=== PATIENT | male | born 1970 | race Caucasian/White ===

== ENCOUNTER 2017-04-01 01:02 | Emergency (ER) | payer OTHER, MEDICAID ==
[~2017-04-01] VITALS: Ht 180.3 cm; Wt 103.8 kg
[~2017-04-01 01:02] MED LIST: ACCUNEB SO1.25 MG/1 INH; AZITHROMYCIN 2250 MG PO; BENTYL 20 MG TA20 M1 PO; BIOFREEZE118 ML TP; CARVEDILOL12.5 MG; CLARITHROMYCIN500 MG; CRANBERRY PLUS1 EAC1; CYCLOBENZAPRINE5 MG PO; DELTASONE20 MG PO; DOXYCYCLINE 10100 MG PO; DUONEB 2.5-0.5 M3 ML INH; FLEXERIL PO; HYDROCHLOROTHIA25 M1; HYDROCODONE-AP1 EAC6 PO; LEVAQUIN 750 M750 MG PO; MULTIVITAMIN; NAPHCON-A EYE D15 ML; NAPROSYN500 MG; NEXIUM20 M1; NORCO 5-325 TA1 EACH PO; NORVASC5 MG; POTASSIUM20; POTASSIUM20 PO; PREDNISONE50 MG PO; PROAIR HFA8.5 GM IH; PROAIR HFA8.5 GM INH; SYMBICORT160 MCG/4.; TRAMADOL 50 MG50 MG; VITAMINC500; ZANTAC 150MG T150 MG PO; ZPAK PO
[2017-04-01 01:27] LABS: ABSOLUTE BASOPHILS 0.1 thou/uL (0.0-0.2); ABSOLUTE EOSINOPHILS 0.2 thou/uL (0.0-0.7); ABSOLUTE LYMPHOCYTES 5.2 thou/uL (0.8-5.3); ABSOLUTE MONOCYTES 0.6 thou/uL (0.0-1.2); ABSOLUTE NEUTROPHILS 5.6 thou/uL (1.6-8.1); BASOPHILS 0.9 %; HEMATOCRIT 47.4 % (42.0-52.0); HEMOGLOBIN 16.2 gm/dL (14.0-18.0); LYMPHOCYTES 44.7 %; MCH 30.5 pg (26.0-34.0); MCHC 34.2 g/dL (28.0-37.0); MCV 89.1 fL (80.0-100.0); MONOCYTES 4.9 %; MPV 7.6 fl. (7.2-11.1); NUCLEATED RBCS 0 /100WBC; PLATELET COUNT* 239 thou/uL (150-400); POLYS 47.5 %; RBC 5.32 mil/uL (4.50-6.00); RDW-CV 13.3 % (10.5-14.5); WBC 11.7 thou/uL (4.0-11.0)
[2017-04-01 01:56] LABS: ANION GAP 10 mmol/L (7-16); BUN 7 mg/dL (7-18); CALCIUM 8.5 mg/dL (8.5-10.1); CHLORIDE 100 mmol/L (98-107); CO2 30 mmol/L (21-32); GLUCOSE 160 mg/dL (70-99); POTASSIUM 2.4 mmol/L (3.5-5.1); SODIUM 140 mmol/L (136-145)
[2017-04-01 01:57] LABS: MAGNESIUM 2.1 mg/dL (1.8-2.4)
[2017-04-01 01:58] LABS: APTT 28.2 Seconds (25.0-31.3); PROTIME 9.8 Seconds (9.20-11.50)
[2017-04-01] MEDS ORDERED: POTASSIUM20 PO (02:08)
[2017-04-01 02:10] LABS: ALBUMIN 3.7 g/dL (3.4-5.0); ALKALINE PHOSPHATASE 86 U/L (46-116); LIPASE 283 U/L (73-393); SGOT 13 U/L (15-37); SGPT 25 U/L (30-65); TOTAL BILIRUBIN 0.4 mg/dL (<0.1-1.0); TOTAL PROTEIN 7.6 g/dL (6.4-8.2); TROPONIN-I LEVEL <0.06 ng/mL (<0.06)
[2017-04-01 02:21] VITALS: BP 137/78
[2017-04-01 02:53] LABS: CK-MB MASS < 0.5 ng/mL (<0.5-3.6)
[2017-04-01 03:25] LABS: NT-PRO BRAIN NAT PEPTIDE 39 pg/mL (<300)
--- NOTE | 2017-04-01 11:16 | EKG ---
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 : 1970 Requested By: Alfredo Laws Order Number: [id number] MD: Ilan Randall Measurements Intervals [place] Rate: 69 P: 73 CT: 177 QRS: 25 QRSD: 126 T: 63 QT: 421 QTc: 451 Interpretive Statements Sinus rhythm IVCD, consider atypical RBBB Baseline wander in lead(s) V2 Compared to ECG 12/12/2016 03:57:17 no change Electronically Signed On 04-01-2017 11:16:20 RD MECHANICAL ENGINEER by Ilan Randall [email or web address] <ELECTRONICALLY SIGNED> By: Ilan Ranadll MD, [facility] 04/01/17 1116 010 010 Ilan Randall MD, FACC /EPI
== END 2017-04-01 02:22 | disposition home or self-care (01) ==
LOC: M.ERS 01:02
PROVIDERS: Family Medicine
DX: R07.89 Other chest pain (principal); E87.6 Hypokalemia; I11.0 Hypertensive heart disease with heart failure; K21.9 Gastro-esophageal reflux disease without esophagitis; F20.9 Schizophrenia, unspecified; J42 Unspecified chronic bronchitis; F17.210 Nicotine dependence, cigarettes, uncomplicated; Z88.1 Allergy status to other antibiotic agents; Z88.0 Allergy status to penicillin; Z88.6 Allergy status to analgesic agent; Z88.8 Allergy status to other drugs, medicaments and biological substances

== ENCOUNTER 2017-05-28 01:23 | Emergency (ER) | payer OTHER, MEDICAID ==
[~2017-05-28] VITALS: Ht 180.3 cm; Wt 102.1 kg
[2017-05-28 01:56] LABS: ABSOLUTE EOSINOPHILS 0.2 thou/uL (0.0-0.7); ABSOLUTE LYMPHOCYTES 5.4 thou/uL (0.8-5.3); ABSOLUTE MONOCYTES 0.6 thou/uL (0.0-1.2); ABSOLUTE NEUTROPHILS 5.2 thou/uL (1.6-8.1); BASOPHILS 0.3 %; EOSINOPHILS 2.1 %; HEMATOCRIT 46.3 % (42.0-52.0); HEMOGLOBIN 16.1 gm/dL (14.0-18.0); LYMPHOCYTES 47.2 %; MCH 31.2 pg (26.0-34.0); MCHC 34.7 g/dL (28.0-37.0); MCV 89.8 fL (80.0-100.0); MONOCYTES 4.9 %; MPV 7.9 fl. (7.2-11.1); NUCLEATED RBCS 0 /100WBC; PLATELET COUNT* 262 thou/uL (150-400); POLYS 45.5 %; RBC 5.16 mil/uL (4.50-6.00); RDW-CV 13.5 % (10.5-14.5); WBC 11.5 thou/uL (4.0-11.0)
[2017-05-28 01:57] LABS: ANION GAP 10 mmol/L (7-16); BUN 12 mg/dL (7-18); CALCIUM 8.4 mg/dL (8.5-10.1); CHLORIDE 101 mmol/L (98-107); CO2 30 mmol/L (21-32); CREATININE 0.9 mg/dL (0.6-1.3); GLUCOSE 149 mg/dL (70-99); SODIUM 141 mmol/L (136-145)
[2017-05-28 02:01] LABS: INR 0.9; PROTIME 9.2 Seconds (9.20-11.50)
[2017-05-28 02:03] LABS: POTASSIUM 2.7 mmol/L (3.5-5.1)
[2017-05-28 02:04] LABS: ALBUMIN 3.6 g/dL (3.4-5.0); ALKALINE PHOSPHATASE 93 U/L (46-116); SGOT 11 U/L (15-37); SGPT 20 U/L (30-65); TOTAL BILIRUBIN 0.3 mg/dL (<0.1-1.0); TOTAL PROTEIN 7.5 g/dL (6.4-8.2); TROPONIN-I LEVEL <0.06 ng/mL (<0.06)
[2017-05-28 05:04] VITALS: BP 161/89
--- NOTE | 2017-05-28 12:02 | EKG ---
[place] [address] ELECTROCARDIOGRAM REPORT Name: KEERTHI STILES [facility] [id number] Admission: 05/28/17 Attend Phys: Discharge: 05/28/17 Date of : 72 Report #: [id number] THIS REPORT FOR: //name// 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: JOSE ENRIQUE : 1970 Requested By: Radha Zafar Order Number: [id number] MD: Xander Kerns Measurements Intervals [place] Rate: 63 P: 70 ME: 189 QRS: 32 QRSD: 119 T: 67 QT: 400 QTc: 410 Interpretive Statements Sinus rhythm Incomplete right bundle branch block Compared to ECG 04/01/2017 01:07:14 Incomplete right bundle-branch block now present Electronically Signed On 05-28-2017 12:01:49 V GROOVE CUTTER by Xander Kerns [email or web address] <ELECTRONICALLY SIGNED> By: Xander Kerns MD, [facility] 05/28/17 1201 0126 012 Xander Kerns MD, [facility] /EPI
== END 2017-05-28 05:09 | disposition home or self-care (01) ==
LOC: M.ERS 01:23
PROVIDERS: Emergency Medicine
DX: E87.6 Hypokalemia (principal); F20.9 Schizophrenia, unspecified; K21.9 Gastro-esophageal reflux disease without esophagitis; J42 Unspecified chronic bronchitis; I11.0 Hypertensive heart disease with heart failure; I50.9 Heart failure, unspecified; F17.210 Nicotine dependence, cigarettes, uncomplicated; Z88.1 Allergy status to other antibiotic agents; Z88.0 Allergy status to penicillin; Z88.2 Allergy status to sulfonamides; Z88.8 Allergy status to other drugs, medicaments and biological substances

== ENCOUNTER 2017-06-29 01:19 | Emergency (ER) | payer OTHER, MEDICAID ==
[~2017-06-29] VITALS: Ht 175.3 cm; Wt 97.5 kg
[2017-06-29] MEDS ORDERED: ULTRAM 50MG TAB50 MG PO (01:41)
[2017-06-29 02:04] VITALS: BP 169/93
== END 2017-06-29 02:10 | disposition home or self-care (01) ==
LOC: M.ERS 01:19
DX: M79.602 Pain in left arm (principal); H61.23 Impacted cerumen, bilateral; I11.0 Hypertensive heart disease with heart failure; I50.9 Heart failure, unspecified; K21.9 Gastro-esophageal reflux disease without esophagitis; Z88.1 Allergy status to other antibiotic agents; Z88.0 Allergy status to penicillin; Z88.6 Allergy status to analgesic agent

== ENCOUNTER 2017-08-16 04:01 | Emergency (ER) | payer OTHER, MEDICAID ==
[~2017-08-16] VITALS: Ht 180.3 cm; Wt 108.9 kg
[~2017-08-16 04:01] MED LIST changes: +ULTRAM 50MG TAB50 MG PO
[2017-08-16] MEDS ORDERED: ALBUTEROL2.5 MG/31 (04:24)
[2017-08-16 04:44] LABS: ABSOLUTE EOSINOPHILS 0.2 thou/uL (0.0-0.7); ABSOLUTE LYMPHOCYTES 5.3 thou/uL (0.8-5.3); ABSOLUTE MONOCYTES 0.6 thou/uL (0.0-1.2); ABSOLUTE NEUTROPHILS 5.3 thou/uL (1.6-8.1); BASOPHILS 0.3 %; EOSINOPHILS 2.1 %; HEMOGLOBIN 15.6 gm/dL (14.0-18.0); LYMPHOCYTES 45.9 %; MCH 31.2 pg (26.0-34.0); MCHC 34.7 g/dL (28.0-37.0); MCV 89.9 fL (80.0-100.0); MONOCYTES 5.7 %; MPV 7.4 fl. (7.2-11.1); NUCLEATED RBCS 0 /100WBC; PLATELET COUNT* 253 thou/uL (150-400); RBC 5.01 mil/uL (4.50-6.00); RDW-CV 13.2 % (10.5-14.5); WBC 11.5 thou/uL (4.0-11.0)
[2017-08-16 04:47] LABS: PROTIME 9.5 Seconds (9.20-11.50)
[2017-08-16 04:57] LABS: ANION GAP 9 mmol/L (7-16); BUN 7 mg/dL (7-18); CALCIUM 8.3 mg/dL (8.5-10.1); CHLORIDE 103 mmol/L (98-107); CO2 28 mmol/L (21-32); CREATININE 0.9 mg/dL (0.6-1.3); GLUCOSE 150 mg/dL (70-99); SODIUM 140 mmol/L (136-145)
[2017-08-16 05:08] LABS: POTASSIUM 2.7 mmol/L (3.5-5.1)
[2017-08-16 05:37] LABS: ALBUMIN 3.6 g/dL (3.4-5.0); ALKALINE PHOSPHATASE 79 U/L (46-116); NT-PRO BRAIN NAT PEPTIDE 14 pg/mL (<300); SGOT 7 U/L (15-37); SGPT 19 U/L (30-65); TOTAL BILIRUBIN 0.2 mg/dL (<0.1-1.0); TOTAL PROTEIN 7.4 g/dL (6.4-8.2); TROPONIN-I LEVEL <0.06 ng/mL (<0.06)
[2017-08-16 07:24] VITALS: BP 159/81
--- NOTE | 2017-08-16 14:50 | EKG ---
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 : 1970 Requested By: Radha Zafar Order Number: [id number] MD: Tian Jackson Measurements Intervals [place] Rate: 70 P: 68 [place]: 167 QRS: 36 QRSD: 109 T: 68 QT: 400 QTc: 432 Interpretive Statements Sinus rhythm RSR' in V1 or V2, right VCD or RVH Compared to ECG 05/28/2017 01:26:50 Right ventricular hypertrophy now present RSR' in V1 or V2 now present Incomplete right bundle-branch block no longer present Electronically Signed On 08-16-2017 14:50:23 CDT by Tian Jackson [email or web address] <ELECTRONICALLY SIGNED> By: Tian Jackson MD, FACC 08/16/17 1450 0406 0406 Tian Jackson MD, [facility] /EPI
== END 2017-08-16 07:24 | disposition home or self-care (01) ==
LOC: M.ERS 04:01
PROVIDERS: Emergency Medicine
DX: R07.9 Chest pain, unspecified (principal); E87.6 Hypokalemia; F20.9 Schizophrenia, unspecified; K21.9 Gastro-esophageal reflux disease without esophagitis; I50.9 Heart failure, unspecified; I11.0 Hypertensive heart disease with heart failure; J44.9 Chronic obstructive pulmonary disease, unspecified; F17.210 Nicotine dependence, cigarettes, uncomplicated; Z88.1 Allergy status to other antibiotic agents; Z88.8 Allergy status to other drugs, medicaments and biological substances; Z88.2 Allergy status to sulfonamides; Z88.6 Allergy status to analgesic agent

== ENCOUNTER 2017-12-29 03:45 | Emergency (ER) | payer OTHER, MEDICAID ==
[~2017-12-29] VITALS: Ht 180.3 cm; Wt 104.3 kg
[~2017-12-29 03:45] MED LIST changes: +ALBUTEROL2.5 MG/31
[2017-12-29 04:06] LABS: MCH 30.6 pg (26.0-34.0); MCHC 34.8 g/dL (28.0-37.0); MCV 87.7 fL (80.0-100.0); MPV 7.2 fl. (7.2-11.1); NUCLEATED RBCS 0 /100WBC; PLATELET COUNT* 271 thou/uL (150-400); RBC 5.24 mil/uL (4.50-6.00); RDW-CV 13.3 % (10.5-14.5); WBC 11.9 thou/uL (4.0-11.0)
[2017-12-29] MEDS ORDERED: VITAMIN C500 M2 PO (04:12)
[2017-12-29] MEDS ORDERED: CRANBERRY200 MG PO (04:12)
[2017-12-29] MEDS ORDERED: CENTRUM SILVER1 EAC4 PO (04:13)
[2017-12-29 04:27] LABS: ANION GAP 7 mmol/L (7-16); BUN 6 mg/dL (7-18); CALCIUM 8.7 mg/dL (8.5-10.1); CHLORIDE 100 mmol/L (98-107); CO2 32 mmol/L (21-32); CREATININE 0.8 mg/dL (0.6-1.3); GLUCOSE 165 mg/dL (70-99); SODIUM 139 mmol/L (136-145)
[2017-12-29 04:29] LABS: POTASSIUM 2.5 mmol/L (3.5-5.1)
[2017-12-29 04:32] LABS: INR 0.9; PROTIME 9.4 Seconds (9.20-11.50)
[2017-12-29 04:38] LABS: ALBUMIN 3.7 g/dL (3.4-5.0); ALKALINE PHOSPHATASE 90 U/L (46-116); LIPASE 247 U/L (73-393); NT-PRO BRAIN NAT PEPTIDE 14 pg/mL (<300); SGOT 9 U/L (15-37); SGPT 19 U/L (30-65); TOTAL BILIRUBIN 0.3 mg/dL (<0.1-1.0); TOTAL PROTEIN 7.9 g/dL (6.4-8.2); TROPONIN-I LEVEL <0.06 ng/mL (<0.06)
[2017-12-29 05:52] LABS: ABSOLUTE LYMPHOCYTES 5.8 thou/uL (0.8-5.3); ABSOLUTE MONOCYTES 0.8 thou/uL (0.0-1.2); ABSOLUTE NEUTROPHILS 5.2 thou/uL (1.6-8.1); ANISOCYTOSIS 1+; PLATELET ESTIMATE ADEQUATE; POIKILOCYTOSIS 1+
[2017-12-29 08:48] VITALS: BP 138/84
--- NOTE | 2017-12-29 16:35 | EKG ---
[place] [address] ELECTROCARDIOGRAM REPORT Name: KEERTHI STILES Room: [facility] Teetee#: [id number] Admission: 12/29/17 Attend Phys: Discharge: 12/29/17 Date of : 72 Report #: [id number] THIS REPORT FOR: //name// [facility] ED Test Date: 2017-12-29 Test Time: 03:50:28 Pat Name: KEERTHI STILES Department: Room: Gender: Electronic Specialist: KRISTY : 1970 Requested By: Radha Zafar Order Number: [id number] MD: Kali Lambert Measurements Intervals [place] Rate: 69 P: 60 [place]: 174 QRS: 17 QRSD: 117 T: 61 QT: 411 QTc: 441 Interpretive Statements Sinus rhythm Incomplete right bundle branch block Compared to ECG 08/16/2017 04:06:03 Incomplete right bundle-branch block now present Right ventricular hypertrophy no longer present Electronically Signed On 12-29-2017 16:35:10 CDT by Kali Lambert [email or web address] <ELECTRONICALLY SIGNED> By: Kali Lambert MD, [facility] 12/29/17 1635 0350 0350 Kali Lambert MD, FAC /EPI
== END 2017-12-29 08:52 | disposition home or self-care (01) ==
LOC: M.ERS 03:45
PROVIDERS: Emergency Medicine
DX: E87.6 Hypokalemia (principal); I11.0 Hypertensive heart disease with heart failure; I50.9 Heart failure, unspecified; K21.9 Gastro-esophageal reflux disease without esophagitis; J42 Unspecified chronic bronchitis; F20.9 Schizophrenia, unspecified; Z88.0 Allergy status to penicillin; Z88.1 Allergy status to other antibiotic agents; Z88.6 Allergy status to analgesic agent; Z88.8 Allergy status to other drugs, medicaments and biological substances; F17.210 Nicotine dependence, cigarettes, uncomplicated

== ENCOUNTER 2018-09-13 01:12 | Emergency (ER) | payer OTHER, MEDICAID ==
[~2018-09-13] VITALS: Ht 180.3 cm; Wt 103.0 kg
[~2018-09-13 01:12] MED LIST changes: +CENTRUM SILVER1 EAC4 PO; +CRANBERRY200 MG PO; +VITAMIN C500 M2 PO
[2018-09-13] MEDS ORDERED: KEFLEX500 M1 PO (01:32)
[2018-09-13 01:38] VITALS: BP 157/72
== END 2018-09-13 01:38 | disposition home or self-care (01) ==
LOC: M.ERS 01:12
DX: L03.116 Cellulitis of left lower limb (principal); F17.210 Nicotine dependence, cigarettes, uncomplicated; F20.9 Schizophrenia, unspecified; K21.9 Gastro-esophageal reflux disease without esophagitis; I11.0 Hypertensive heart disease with heart failure; I50.9 Heart failure, unspecified; J44.9 Chronic obstructive pulmonary disease, unspecified; Z88.1 Allergy status to other antibiotic agents; Z88.8 Allergy status to other drugs, medicaments and biological substances; Z88.0 Allergy status to penicillin; Z88.2 Allergy status to sulfonamides; Z88.6 Allergy status to analgesic agent

== ENCOUNTER 2018-11-22 13:58 | Emergency (ER) | payer OTHER, MEDICAID ==
[~2018-11-22] VITALS: Ht 180.3 cm; Wt 104.3 kg
[~2018-11-22 13:58] MED LIST changes: +CVS POLY BACITR28 G1 TOP; +KEFLEX500 M1 PO; +MUPIROCIN15 GM TOP; +TRAMADOL 50 MG50 MG PO
[2018-11-22 14:08] VITALS: BP 151/90
[2018-11-22] MEDS ORDERED: LIDOCAINE VISC100 ML SWISH&SPIT (14:20)
[2018-11-22] MEDS ORDERED: KEFLEX500 M1 PO (14:20)
[2018-11-22] MEDS ORDERED: ACETAMINOPHEN-1 EAC1 PO (14:20)
== END 2018-11-22 14:31 | disposition home or self-care (01) ==
LOC: M.ERS 13:58
DX: K04.7 Periapical abscess without sinus (principal); F20.9 Schizophrenia, unspecified; I11.0 Hypertensive heart disease with heart failure; I50.9 Heart failure, unspecified; J44.9 Chronic obstructive pulmonary disease, unspecified; K21.9 Gastro-esophageal reflux disease without esophagitis; F17.210 Nicotine dependence, cigarettes, uncomplicated; Z98.890 Other specified postprocedural states; Z88.1 Allergy status to other antibiotic agents; Z88.2 Allergy status to sulfonamides; Z88.6 Allergy status to analgesic agent; Z88.8 Allergy status to other drugs, medicaments and biological substances; Z88.0 Allergy status to penicillin

== ENCOUNTER 2018-12-05 23:43 | Emergency (ER) | payer OTHER, MEDICAID ==
[~2018-12-05] VITALS: Ht 180.3 cm; Wt 102.6 kg
[~2018-12-05 23:43] MED LIST changes: +ACETAMINOPHEN-1 EAC1 PO; +LIDOCAINE VISC100 ML SWISH&SPIT
[2018-12-06] MEDS ORDERED: KEFLEX500 M1 PO (00:16)
== END 2018-12-06 | disposition home or self-care (01) ==
LOC: M.ERS 23:43
DX: S80.262A Insect bite (nonvenomous), left knee, initial encounter (principal); F17.210 Nicotine dependence, cigarettes, uncomplicated; F20.9 Schizophrenia, unspecified; K21.9 Gastro-esophageal reflux disease without esophagitis; I11.0 Hypertensive heart disease with heart failure; I50.9 Heart failure, unspecified; J44.9 Chronic obstructive pulmonary disease, unspecified; Z88.1 Allergy status to other antibiotic agents; Z88.8 Allergy status to other drugs, medicaments and biological substances; Z88.0 Allergy status to penicillin; Z88.2 Allergy status to sulfonamides; Z88.6 Allergy status to analgesic agent; W57.XXXA Bitten or stung by nonvenomous insect and other nonvenomous arthropods, initial encounter; Y92.89 Other specified places as the place of occurrence of the external cause; Y93.89 Activity, other specified; Y99.8 Other external cause status

== ENCOUNTER 2018-12-18 02:06 | Emergency (ER) | payer OTHER, MEDICAID ==
[~2018-12-18] VITALS: Ht 180.3 cm; Wt 102.1 kg
[2018-12-18] MEDS ORDERED: HYDROCHLOROTHIA25 M2 PO (02:14)
[2018-12-18] MEDS ORDERED: VITAMINC500 PO (02:14)
[2018-12-18] MEDS ORDERED: PROZAC10 MG PO (02:15)
[2018-12-18] MEDS ORDERED: KEFLEX500 M1 PO (02:34)
[2018-12-18] MEDS ORDERED: ULTRAM 50MG TAB50 MG PO (02:34)
[2018-12-18 02:42] VITALS: BP 123/66
== END 2018-12-18 02:42 | disposition home or self-care (01) ==
LOC: M.ERS 02:06
DX: H66.93 Otitis media, unspecified, bilateral (principal); I11.0 Hypertensive heart disease with heart failure; I50.9 Heart failure, unspecified; F20.9 Schizophrenia, unspecified; K21.9 Gastro-esophageal reflux disease without esophagitis; J44.9 Chronic obstructive pulmonary disease, unspecified; F17.210 Nicotine dependence, cigarettes, uncomplicated; Z98.890 Other specified postprocedural states; Z88.1 Allergy status to other antibiotic agents; Z88.6 Allergy status to analgesic agent; Z88.0 Allergy status to penicillin; Z88.2 Allergy status to sulfonamides; Z88.8 Allergy status to other drugs, medicaments and biological substances

== ENCOUNTER 2019-01-06 21:20 | Emergency (ER) | payer OTHER, MEDICAID ==
[~2019-01-06] VITALS: Ht 180.3 cm; Wt 108.9 kg
[~2019-01-06 21:20] MED LIST changes: +HYDROCHLOROTHIA25 M2 PO; +PROZAC10 MG PO; +VITAMINC500 PO
[2019-01-06 21:25] VITALS: BP 209/95
[2019-01-06] MEDS ORDERED: SYMBICORT160 MCG/4. INH (21:30)
[2019-01-06] MEDS ORDERED: PREDNISONE 20 M20 M1 PO (21:36)
== END 2019-01-06 21:58 | disposition home or self-care (01) ==
LOC: M.ERS 21:20
DX: J44.1 Chronic obstructive pulmonary disease with (acute) exacerbation (principal); I11.0 Hypertensive heart disease with heart failure; I50.9 Heart failure, unspecified; K21.9 Gastro-esophageal reflux disease without esophagitis; F20.9 Schizophrenia, unspecified; F17.210 Nicotine dependence, cigarettes, uncomplicated; Z88.6 Allergy status to analgesic agent; Z88.1 Allergy status to other antibiotic agents; Z88.2 Allergy status to sulfonamides; Z88.0 Allergy status to penicillin; Z88.8 Allergy status to other drugs, medicaments and biological substances

== ENCOUNTER 2019-01-25 02:44 | Emergency (ER) | payer OTHER, MEDICAID ==
[~2019-01-25] VITALS: Ht 180.3 cm; Wt 99.8 kg
[~2019-01-25 02:44] MED LIST changes: +PREDNISONE 20 M20 M1 PO; +SYMBICORT160 MCG/4. INH
[2019-01-25 03:00] VITALS: BP 168/105
== END 2019-01-25 03:00 | disposition home or self-care (01) ==
LOC: M.ERS 02:44
DX: S61.301A Unspecified open wound of left index finger with damage to nail, initial encounter (principal); I10 Essential (primary) hypertension; F20.9 Schizophrenia, unspecified; K21.9 Gastro-esophageal reflux disease without esophagitis; I50.9 Heart failure, unspecified; J44.9 Chronic obstructive pulmonary disease, unspecified; F17.210 Nicotine dependence, cigarettes, uncomplicated; Z88.1 Allergy status to other antibiotic agents; Z88.6 Allergy status to analgesic agent; Z88.0 Allergy status to penicillin; Z88.2 Allergy status to sulfonamides; W26.8XXA Contact with other sharp object(s), not elsewhere classified, initial encounter; Y93.89 Activity, other specified; Y92.89 Other specified places as the place of occurrence of the external cause; Y99.8 Other external cause status

== ENCOUNTER 2019-02-06 23:29 | Emergency (ER) | payer OTHER, MEDICAID ==
[~2019-02-06] VITALS: Ht 180.3 cm; Wt 95.3 kg
[2019-02-06 23:39] VITALS: BP 136/81
[2019-02-06] MEDS ORDERED: PROZAC 20 MG20 MG PO (23:48)
[2019-02-07] MEDS ORDERED: CILOXAN5 ML INTRAOCULR (00:14)
[2019-02-07] MEDS ORDERED: NASONEX17 GM NASAL (00:14)
== END 2019-02-07 00:22 | disposition home or self-care (01) ==
LOC: M.ERS 23:29
DX: J06.9 Acute upper respiratory infection, unspecified (principal); H10.9 Unspecified conjunctivitis; I11.0 Hypertensive heart disease with heart failure; I50.9 Heart failure, unspecified; F20.9 Schizophrenia, unspecified; K21.9 Gastro-esophageal reflux disease without esophagitis; J44.9 Chronic obstructive pulmonary disease, unspecified; F17.210 Nicotine dependence, cigarettes, uncomplicated; Z88.1 Allergy status to other antibiotic agents; Z88.8 Allergy status to other drugs, medicaments and biological substances; Z88.0 Allergy status to penicillin; Z88.2 Allergy status to sulfonamides; Z88.6 Allergy status to analgesic agent

== ENCOUNTER 2019-02-16 01:02 | Emergency (ER) | payer OTHER, MEDICAID ==
[~2019-02-16] VITALS: Ht 180.3 cm; Wt 95.3 kg
[~2019-02-16 01:02] MED LIST changes: +CILOXAN5 ML INTRAOCULR; +NASONEX17 GM NASAL; +PROZAC 20 MG20 MG PO
[2019-02-16 01:44] LABS: URINE BILIRUBIN NEGATIVE (Negative); URINE BLOOD NEGATIVE (Negative); URINE CLARITY CLEAR; URINE COLOR YELLOW; URINE GLUCOSE-RANDOM NEGATIVE (Negative); URINE KETONES NEGATIVE (Negative); URINE LEUKOCYTES-REFLEX NEGATIVE (Negative); URINE NITRITE-REFLEX NEGATIVE (Negative); URINE PROTEIN NEGATIVE (Negative); URINE SPECIFIC GRAVITY 1.015 (1.005-1.030); URINE UROBILINOGEN 0.2 E.U./dl (0.2-1.0)
[2019-02-16] MEDS ORDERED: HYDROCODON-ACE1 EAC8 PO (01:55)
[2019-02-16 02:00] VITALS: BP 140/72
== END 2019-02-16 02:00 | disposition home or self-care (01) ==
LOC: M.ERS 01:02
PROVIDERS: Emergency Medicine
DX: M62.830 Muscle spasm of back (principal); F20.9 Schizophrenia, unspecified; K21.9 Gastro-esophageal reflux disease without esophagitis; J44.9 Chronic obstructive pulmonary disease, unspecified; I11.0 Hypertensive heart disease with heart failure; I50.9 Heart failure, unspecified; F17.210 Nicotine dependence, cigarettes, uncomplicated; Z88.1 Allergy status to other antibiotic agents; Z88.0 Allergy status to penicillin; Z88.2 Allergy status to sulfonamides; Z88.8 Allergy status to other drugs, medicaments and biological substances; Z88.6 Allergy status to analgesic agent

== ENCOUNTER 2019-04-03 22:11 | Emergency (ER) | payer OTHER, MEDICAID ==
[~2019-04-03] VITALS: Ht 180.3 cm; Wt 108.9 kg
[~2019-04-03 22:11] MED LIST changes: +HYDROCODON-ACE1 EAC8 PO
[2019-04-03] MEDS ORDERED: FAMOTIDINE 20 M20 MG PO (22:24)
[2019-04-03] MEDS ORDERED: NORCO 5-325 TA1 EAC1 PO (23:11)
[2019-04-03 23:24] VITALS: BP 167/64
== END 2019-04-03 23:24 | disposition home or self-care (01) ==
LOC: M.ERS 22:11
DX: R10.9 Unspecified abdominal pain (principal); I10 Essential (primary) hypertension; F20.9 Schizophrenia, unspecified; K21.9 Gastro-esophageal reflux disease without esophagitis; J44.9 Chronic obstructive pulmonary disease, unspecified

== ENCOUNTER 2019-04-21 16:15 | Emergency (ER) | payer OTHER, MEDICAID ==
[~2019-04-21] VITALS: Ht 180.3 cm; Wt 104.3 kg
[~2019-04-21 16:15] MED LIST changes: +FAMOTIDINE 20 M20 MG PO; +NORCO 5-325 TA1 EAC1 PO
[2019-04-21] MEDS ORDERED: TRAZODONE HCL100 MG PO (16:26)
[2019-04-21] MEDS ORDERED: DEPAKOTE 250MG250 M1 PO (16:27)
[2019-04-21 17:01] LABS: ABSOLUTE BASOPHILS 0.1 thou/uL (0.0-0.2); ABSOLUTE EOSINOPHILS 0.1 thou/uL (0.0-0.7); ABSOLUTE LYMPHOCYTES 1.8 thou/uL (0.8-5.3); ABSOLUTE MONOCYTES 0.6 thou/uL (0.0-1.2); ABSOLUTE NEUTROPHILS 8.1 thou/uL (1.6-8.1); BASOPHILS 0.8 %; EOSINOPHILS 0.8 %; HEMATOCRIT 43.4 % (42.0-52.0); HEMOGLOBIN 15.7 gm/dL (14.0-18.0); MCHC 36.1 g/dL (28.0-37.0); MONOCYTES 5.5 %; MPV 7.3 fl. (7.2-11.1); NUCLEATED RBCS 0 /100WBC; PLATELET COUNT* 242 thou/uL (150-400); POLYS 75.9 %; RBC 5.05 mil/uL (4.50-6.00); RDW-CV 13.2 % (10.5-14.5); WBC 10.7 thou/uL (4.0-11.0)
[2019-04-21 17:08] LABS: CALCIUM 7.5 mg/dL (8.5-10.1)
[2019-04-21 17:10] LABS: POTASSIUM 2.6 mmol/L (3.5-5.1)
[2019-04-21 17:13] LABS: ALBUMIN 3.4 g/dL (3.4-5.0); TOTAL BILIRUBIN 0.6 mg/dL (<0.1-1.0); TOTAL PROTEIN 7.4 g/dL (6.4-8.2)
[2019-04-21 17:14] LABS: APTT 29.2 Seconds (25.0-31.3)
[2019-04-21] MEDS ORDERED: FLAGYL500 M1 PO (19:29)
[2019-04-21] MEDS ORDERED: NORCO 5-325 TA1 EAC1 PO (19:29)
[2019-04-21 20:00] VITALS: BP 130/82
--- NOTE | 2019-04-22 14:00 | EKG ---
[place] [address] ELECTROCARDIOGRAM REPORT Name: KEERTHI STILES 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: : 1970 Requested By: Rosa Redding Order Number: [id number] MD: Kali Lambert Measurements Intervals [place] Rate: 78 P: 73 [place]: 162 QRS: -30 QRSD: 111 T: 73 QT: 401 QTc: 457 Interpretive Statements Sinus rhythm Left axis deviation RSR' in V1 or V2, probably normal variant Compared to ECG 12/29/2017 03:50:28 Left-axis deviation now present RSR' in V1 or V2 now present Electronically Signed On 04-22-2019 14:00:13 SPECIAL TRACKWORK BLACKSMITH by Kali Lambert [email or web address] <ELECTRONICALLY SIGNED> By: Kali Lambert MD, FAC 04/22/19 1400 1656 1656 Kali Lambert MD, [facility] /EPI
== END 2019-04-21 20:01 | disposition home or self-care (01) ==
LOC: M.ERS 16:15
PROVIDERS: Nurse Practitioner Family
DX: K80.20 Calculus of gallbladder without cholecystitis without obstruction (principal); D35.02 Benign neoplasm of left adrenal gland; D35.01 Benign neoplasm of right adrenal gland; E87.6 Hypokalemia; K92.1 Melena; R19.7 Diarrhea, unspecified

== ENCOUNTER 2019-04-26 16:55 | Emergency (ER) | payer OTHER, MEDICAID ==
[~2019-04-26] VITALS: Ht 180.3 cm; Wt 104.3 kg
[~2019-04-26 16:55] MED LIST changes: +DEPAKOTE 250MG250 M1 PO; +FLAGYL500 M1 PO; +TRAZODONE HCL100 MG PO
[2019-04-26 18:03] LABS: INFLUENZA A ANTIGEN Negative (Negative); INFLUENZA B ANTIGEN Negative (Negative)
[2019-04-26 18:21] VITALS: BP 155/92
== END 2019-04-26 18:22 | disposition home or self-care (01) ==
LOC: M.ERS 16:55
PROVIDERS: Physician Assistant
DX: J40 Bronchitis, not specified as acute or chronic (principal); B34.9 Viral infection, unspecified; F20.9 Schizophrenia, unspecified; I11.0 Hypertensive heart disease with heart failure; I50.9 Heart failure, unspecified; J44.9 Chronic obstructive pulmonary disease, unspecified; K21.9 Gastro-esophageal reflux disease without esophagitis; F17.210 Nicotine dependence, cigarettes, uncomplicated; Z88.1 Allergy status to other antibiotic agents; Z88.0 Allergy status to penicillin; Z88.2 Allergy status to sulfonamides; Z88.6 Allergy status to analgesic agent

== ENCOUNTER 2019-05-24 20:08 | Emergency (ER) | payer OTHER, MEDICAID ==
[~2019-05-24] VITALS: Ht 175.3 cm; Wt 108.9 kg
[2019-05-24 20:40] LABS: INFLUENZA A ANTIGEN Negative (Negative); INFLUENZA B ANTIGEN Negative (Negative)
[2019-05-24] MEDS ORDERED: PREDNISONE50 MG PO (21:17)
[2019-05-24 21:45] VITALS: BP 142/85
== END 2019-05-24 21:45 | disposition home or self-care (01) ==
LOC: M.ERS 20:08
PROVIDERS: Emergency Medicine
DX: J40 Bronchitis, not specified as acute or chronic (principal); I50.9 Heart failure, unspecified; I11.0 Hypertensive heart disease with heart failure; J44.9 Chronic obstructive pulmonary disease, unspecified; K21.9 Gastro-esophageal reflux disease without esophagitis; F20.9 Schizophrenia, unspecified; Z88.1 Allergy status to other antibiotic agents; Z88.2 Allergy status to sulfonamides; Z88.6 Allergy status to analgesic agent; Z88.8 Allergy status to other drugs, medicaments and biological substances

== ENCOUNTER 2019-05-30 20:00 | Emergency (ER) | payer OTHER, MEDICAID ==
[~2019-05-30] VITALS: Ht 180.3 cm; Wt 111.1 kg
[2019-05-30 20:48] LABS: INFLUENZA A ANTIGEN Negative (Negative); INFLUENZA B ANTIGEN Negative (Negative)
[2019-05-30] MEDS ORDERED: AZITHROMYCIN 2250 MG PO (21:46)
[2019-05-30] MEDS ORDERED: PREDNISONE 10 M10 MG PO (21:46)
[2019-05-30 22:02] VITALS: BP 166/92
== END 2019-05-30 22:03 | disposition home or self-care (01) ==
LOC: M.ERS 20:00
PROVIDERS: Emergency Medicine
DX: J40 Bronchitis, not specified as acute or chronic (principal); I11.0 Hypertensive heart disease with heart failure; I50.9 Heart failure, unspecified; K21.9 Gastro-esophageal reflux disease without esophagitis; J44.9 Chronic obstructive pulmonary disease, unspecified; F17.210 Nicotine dependence, cigarettes, uncomplicated; Z88.1 Allergy status to other antibiotic agents; Z88.0 Allergy status to penicillin; Z88.2 Allergy status to sulfonamides; Z88.6 Allergy status to analgesic agent

== ENCOUNTER 2019-06-04 05:12 | Inpatient (IN) | payer OTHER, MEDICAID ==
[~2019-06-04] VITALS: Ht 180.3 cm; Wt 100.7 kg
[~2019-06-04 05:12] MED LIST changes: -ALBUTEROL2.5 MG/31; +ALBUTEROL2.5 MG/31 INH; -CARVEDILOL12.5 MG; +CARVEDILOL12.5 MG PO; -NORVASC5 MG; +NORVASC5 MG PO; -POTASSIUM20; +PREDNISONE 10 M10 MG PO; -PROZAC 20 MG20 MG PO; +PROZAC20 MG PO
[2019-06-04 05:20] VITALS: BP 166/80
[2019-06-04 05:39] LABS: ABSOLUTE MONOCYTES 0.4 thou/uL (0.0-1.2); ABSOLUTE NEUTROPHILS 8.6 thou/uL (1.6-8.1); BASOPHILS 0.3 %; EOSINOPHILS 0.1 %; HEMATOCRIT 49.2 % (42.0-52.0); HEMOGLOBIN 17.1 gm/dL (14.0-18.0); LYMPHOCYTES 24.8 %; MCH 30.8 pg (26.0-34.0); MCHC 34.7 g/dL (28.0-37.0); MCV 88.6 fL (80.0-100.0); MONOCYTES 3.1 %; MPV 7.5 fl. (7.2-11.1); NUCLEATED RBCS 0 /100WBC; PLATELET COUNT* 354 thou/uL (150-400); POLYS 71.7 %; RBC 5.55 mil/uL (4.50-6.00); RDW-CV 13.8 % (10.5-14.5)
[2019-06-04 05:47] LABS: CALCIUM 9.3 mg/dL (8.5-10.1); POTASSIUM 3.5 mmol/L (3.5-5.1)
[2019-06-04 05:54] LABS: ALBUMIN 3.9 g/dL (3.4-5.0); TOTAL BILIRUBIN 0.4 mg/dL (<0.1-1.0); TOTAL PROTEIN 8.5 g/dL (6.4-8.2)
[2019-06-04 09:25] VITALS: BP 126/78
[2019-06-04 09:32] VITALS: BP 132/85
--- NOTE | 2019-06-04 10:34 | EKG ---
[place] [address] ELECTROCARDIOGRAM REPORT Name: KEERTHI STILES Room: [address] IN [facility]#: [id number] Admission: 06/04/19 Attend Phys: Solitario Hartley, Discharge: Date of : [birth year] Date of Service: 06/04/19 0515 Report #: [id number] THIS REPORT FOR: //name// [facility] ED Test Date: 2019-06-04 Test Time: 05:15:14 Pat Name: KEERTHI STILES Department: Room: [facility] Gender: M Restrooms Or Lounges Maid: NOLA : 1970 Requested By: Sandi Farris Order Number: [id number] MD: Ilan Randall Measurements Intervals [place] Rate: 81 P: 63 [place]: 165 QRS: -24 QRSD: 108 T: 65 QT: 375 QTc: 436 Interpretive Statements Sinus rhythm Borderline left axis deviation RSR' in V1 or V2, probably normal variant Compared to ECG 04/21/2019 16:56:58 No significant changes Electronically Signed On 06-04-2019 10:33:08 CUPOLA LINER by Ilan Randall [email or web address] <ELECTRONICALLY SIGNED> By: Ilan Randall MD, [facility] 06/04/19 1033 0515 0515 Ilan Randall MD, [facility] /EPI
[2019-06-04 11:30] VITALS: BP 162/96
[2019-06-04 16:00] VITALS: BP 148/79
--- NOTE | 2019-06-04 16:40 | 2DMMODE ---
[place] [address] 2 D/M-MODE ECHOCARDIOGRAM Name: KEERTHI STILES Room: [address] IN .R.#: [id number] Admission: 06/04/19 Attend Phys: Solitario Hartley, Discharge: Date of : 72 Date of Service: 06/04/19 1638 Report #: [id number] THIS REPORT FOR: cc: Priti Waller Maggie M. DO Blick, David R. MD [facility] ~ APPROVED REPORT Study performed: 06/04/2019 14:13:51 EXAM: Comprehensive 2D, Doppler, and color-flow Echocardiogram Patient Location: In-Patient Room #: [facility] Status: routine BSA: 2.19 HR: 63 bpm BP: 162/96 mmHg Rhythm: NSR Other Information Study Quality: Adequate Indications Dyspnea 2D Dimensions IVSd: 13.64 (7-11mm) LVOT Diam: 19.86 (18-24mm) LVDd: 45.27 mm PWd: 11.73 (7-11mm) Ascending Ao: 35.11 (22-36mm) LVDs: 25.71 (25-40mm) Aortic Root: 34.22 mm Volumes Left Atrial Volume (Systole) LA ESV Index: 18.30 mL/m2 Aortic Valve AoV Peak Jer.: 1.45 m/s AO Peak Gr.: 8.46 mmHg LVOT Max P.90 mmHg AO Mean Gr.: 4.83 mmHg LVOT Mean P.51 mmHg LVOT Max V: 1.41 m/s AO V2 VTI: 22.25 cm LVOT Mean V: 0.84 m/s JADEN (VTI): 3.85 cm2 LVOT V1 VTI: 27.66 [place] [address] 2 D/M-MODE ECHOCARDIOGRAM Name: KEERTHI STILES Room: [address]#: [id number] Admission: 06/04/19 Attend Phys: Solitario Hartley, Discharge: Date of : 72 Date of Service: 06/04/19 1638 Report #: [id number] Mitral Valve E/A Ratio: 0.77 MV Decel. Time: 241.27 ms MV E Max Jer.: 0.61 m/s MV PHT: 69.97 ms MVA (PHT): 3.14 cm2 TDI E/Lateral E': 4.36 E/Medial E': 6.10 Medial E' Jer.: 0.10 m/s Lateral E' Jer.: 0.14 m/s Pulmonary Valve PV Peak Jer.: 0.93 m/s PV Peak Gr.: 3.45 mmHg Left Ventricle The left ventricle is normal size. There is normal LV segmental wall motion. Mild concentric left ventricular hypertrophy. Left ventricular systolic function is normal. The left ventricular ejection fraction is within the normal range. LVEF is 60-65%. Grade I - abnormal relaxation pattern. Right Ventricle The right ventricle is normal size. The right ventricular systolic function is normal. Atria The left atrium size is normal. The right atrium size is normal. Aortic Valve The aortic valve is normal in structure. No aortic regurgitation is present. There is no aortic valvular stenosis. Mitral Valve The mitral valve is normal in structure. There is no mitral valve regurgitation noted. No evidence of mitral valve stenosis. Tricuspid Valve The tricuspid valve is normal in structure. There is no tricuspid valve regurgitation noted. Pulmonic Valve Pulmonic valve is not well visualized. There is no pulmonic [place] [address] 2 D/M-MODE ECHOCARDIOGRAM Name: KEERTHI STILES Room: [address] IN [facility]#: [id number] Admission: 06/04/19 Attend Phys: Solitario Hartley, Discharge: Date of : 72 Date of Service: 06/04/19 1638 Report #: [id number] Great Vessels The aortic root is normal in size. IVC is not well visualized. Pericardium There is no pericardial effusion. <Conclusion> Mild concentric left ventricular hypertrophy. LVEF is 60-65%. <ELECTRONICALLY SIGNED> By: Ilan Randall MD, FACC 06/04/19 1638 1638 1638 Ilan Randall MD, FAC /INF
[2019-06-04 19:20] VITALS: BP 126/66
--- NOTE | 2019-06-04 20:23 | NUR ---
PT VSS, A&OX4, SNR OF TELE, REPORTS MINOR CHEST ACHING PAIN, ACCUCHECKS, STAND BY ASSIST WITH A CANE, HOURLY ROUNDING PERFORMED, POSSESSIONS AND CALL LIGHT WITHIN REACH
[2019-06-05] VITALS: BP 118/87
[2019-06-05 02:06] LABS: GLYCOHEMOGLOBIN (HGB A1C) 8.9 % (4.8-5.6)
[2019-06-05 04:00] VITALS: BP 102/73
[2019-06-05 04:37] LABS: HEMATOCRIT 44.1 % (42.0-52.0); HEMOGLOBIN 15.5 gm/dL (14.0-18.0); MCHC 35.2 g/dL (28.0-37.0); RBC 5.01 mil/uL (4.50-6.00); RDW-CV 13.8 % (10.5-14.5); WBC 13.9 thou/uL (4.0-11.0)
[2019-06-05 05:26] LABS: ANION GAP 9 mmol/L (7-16); BUN 17 mg/dL (7-18); CALCIUM 8.7 mg/dL (8.5-10.1); CHLORIDE 101 mmol/L (98-107); CHOLESTEROL 193 mg/dL (<200); CO2 30 mmol/L (21-32); CREATININE 0.9 mg/dL (0.6-1.3); GLUCOSE 199 mg/dL (70-99); HDL CHOLESTEROL 32 mg/dL (>40); MAGNESIUM 2.4 mg/dL (1.8-2.4); PHOSPHORUS* 5.5 mg/dL (2.5-4.9); SODIUM 140 mmol/L (136-145); TRIGLYCERIDE 758 mg/dL (<150); VLDL 152 mg/dL (<40)
[2019-06-05 05:31] LABS: POTASSIUM 2.8 mmol/L (3.5-5.1); SERUM ASSESSMENT Gross Lipemia
[2019-06-05 05:32] LABS: LDL CHOLESTEROL ND mg/dL (<100)
[2019-06-05 06:01] LABS: URINE BILIRUBIN NEGATIVE (Negative); URINE BLOOD NEGATIVE (Negative); URINE CLARITY CLEAR; URINE COLOR YELLOW; URINE GLUCOSE-RANDOM NEGATIVE (Negative); URINE KETONES TRACE (Negative); URINE LEUKOCYTES-REFLEX NEGATIVE (Negative); URINE NITRITE-REFLEX NEGATIVE (Negative); URINE PROTEIN NEGATIVE (Negative); URINE SPECIFIC GRAVITY >= 1.030 (1.005-1.030); URINE UROBILINOGEN 0.2 E.U./dl (0.2-1.0)
--- NOTE | 2019-06-05 06:55 | NUR ---
PT ALERT AND ORIENTED. VSS ON 2L. PT WAS SATTING IN 87-89% ON RA. PT SAT UP TO 93% ON 2L. PT DENIES PAIN N/V THIS SHIFT. K+ CRITICAL AT 2.[address] BEAR NOTIFED. WILL FOLLOW UP. PT ON DAILY K+ SUPPLEMENT DUE @ 0900. K+ GIVEN EARLY. UA COLLECTED AND SENT. SEE LAB FOR RESULTS. SIGNIFICANT OTHER AT BEDSIDE. CALL LIGHT WITHIN REACH. HOURLY ROUNDINGS MADE. WILL CONTINUE TO MONITOR.
[2019-06-05 08:00] VITALS: BP 110/68
--- NOTE | 2019-06-05 09:39 | CON ---
[address] [address] CONSULTATION Name: KEERTHI STILES Room: [address] M.R.#: [id number] Admission: 06/04/19 Attend Phys: Solitario Hartley MD Discharge: Date of : 72 Report #: [id number] THIS REPORT FOR: //name// cc: Priti Waller Maggie M. DO ~ THIS REPORT FOR: //name// CC: Solitario Waller DO DATE OF SERVICE: 06/04/2019 CARDIOLOGY CONSULTATION HISTORY OF PRESENT ILLNESS: The patient is a 48-year-old single white male who I was asked to see in the hospital today after complaining of chest pain. The patient states he actually had chest pain, shortness of breath, back in 2015. He underwent a stress echocardiogram here at [facility]. It was performed using dobutamine. Peak heart rate was 146. There were no ECG changes. LV function was normal. There were no wall motion abnormalities. This is felt to be nonischemic. Ejection fraction was normal. Recently, he has had more increased shortness of breath. He had a breathing treatment during the night and began to have a sharp pain in his chest, went into his back. He felt short of breath, but no diaphoresis or nausea. He called EMS and brought here to [facility]. He was admitted for further evaluation and treatment. He did take some Pepto-Bismol, did not seem to help. He denied the pain related to coughing. He has had no bleeding anywhere. Denied trauma to his chest. He does get short of breath when he exerts himself, has had no edema. No palpitations or syncope. PAST MEDICAL HISTORY: Otherwise, he has had previous cyst removal from his back. He has a history of hypertension, diabetes. CURRENT MEDICATIONS: Consists of hydrocodone, amlodipine, carvedilol, albuterol treatments, trazodone, Depakote. ALLERGIES: HE HAS AN ALLERGY TO PENICILLIN AND SULFA DRUGS. FAMILY HISTORY: His mother of heart attack. SOCIAL HISTORY: He is single, lives with girlfriend in [place]. He does not work at this time because of disability. Smokes half pack of cigarettes a day. No alcohol abuse. REVIEW OF SYSTEMS: He has had no history of stroke. He has asthma. No history of peptic ulcer disease, has a gallstone in the past. [place] [address] CONSULTATION Name: GOKEERTHI Bud Room: [address]#: [id number] Admission: 06/04/19 Attend Phys: Solitario Hartley MD Discharge: Date of : 72 Report #: [id number] cancer. He has a history of schizophrenia, sees a psychiatrist. No chronic skin condition. PHYSICAL EXAMINATION: GENERAL: Revealed a middle-aged male who appeared in no distress. VITAL SIGNS: He had a blood pressure of 130/80, pulse is 80. He is afebrile. HEENT: He was anicteric. Conjunctivae are pink. Mucous membranes are moist. NECK: Veins nondistended. No carotid bruits. Neck supple. CHEST: Revealed expiratory wheezes. CARDIOVASCULAR: Regular rate and rhythm, no murmur. ABDOMEN: Soft. EXTREMITIES: Had no edema. Posterior pulse 2+ bilaterally. SKIN: Warm, dry. NEUROLOGIC: Nonfocal. DIAGNOSTIC DATA: His ECG in the Emergency Room today showed a sinus rhythm with incomplete right bundle-branch block, no significant ST or T-wave changes were noted. His chest x-ray last night in the Emergency Room, normal heart size, clear lung lai. LABORATORY DATA: Sodium 135, creatinine 1.0, glucose 533. His liver function studies were normal. Troponins all 0.06. His white blood cell count 12.0, hemoglobin 17.1. IMPRESSION AND RECOMMENDATIONS: 1. Chest pain. Atypical for angina. No ECG changes noted. Recommend no further cardiac evaluation. The patient has negative stress echocardiogram 4 years ago. 2. Chronic obstructive pulmonary disease. 3. Tobacco abuse. 4. Hypertension. The patient is on a beta scotty and calcium scotty. 5. Tobacco abuse. 6. Schizophrenia. <ELECTRONICALLY SIGNED> By: Ilan Randall MD, [facility] 06/05/19 0939 1404 0157Daday Randall MD, FAC /nt
[2019-06-05 11:15] VITALS: BP 130/80
--- NOTE | 2019-06-05 12:00 | NUR ---
MET WITH PT AND S/O KARMEN TO DISCUSS HOME SITUATION/DC PLANNING. PT LIVES WITH K[place] THEY ARE BOTH DISABLED BUT STATE ABLE TO MANAGE WELL, THEY SHARE HOUSEHOLD DUTIES. PT IS INDEPENDENT WITH ADLS. USES CANE. NEW DC. PT TO BE GIVEN INSTRUCTION AND ED MATERIALS/METER FOR DM. GAVE LIST OF DM CLASSES AT [facility] AND ENCOURAGED PT TO CALL. HE ALSO ASKED FOR LIST OF NEW PCP, GIVEN. TO DC LATER TODAY
[2019-06-05] MEDS ORDERED: METFORMIN HCL500 M3 PO (12:16)
[2019-06-05] MEDS ORDERED: AZITHROMYC200 MG/52 PO (12:18)
[2019-06-05 12:23] VITALS: BP 130/80
--- NOTE | 2019-06-05 13:47 | NUR ---
PT VSS, NSR ON TELE, A&OX4, STAND BY ASSIST WITH A CANE, ACCUCHECKS ACHS, HOURLY ROUNDING PERFORMED, POSSESSIONS AND CALL LIGHT WITHIN REACH. REC DISCHARGE ORDERS, REV WITH PATIENT AND SIGNIFICANT OTHER. GAVE NEW TYPE 2 DM BAG WITH INFO AND GLUCOMETER TO PATIENT. GAVE PAPER SCRIPTS AND CARENOTES. TELE MONITOR AND IV REMOVED WITHOUT COMPLICATION. PATIENT TAKEN IN WHEELCHAIR BY NURSING STAFF TO ER ENTRANCE, PICKED UP BY SIGNICICANT OTHER IN FAMILY TRUCK.
== END 2019-06-05 13:00 | disposition home or self-care (01) | DRG 191 ==
LOC: M.ERS 05:12 → M.TBA-ER 06:26 → M.2W 06:26
PROVIDERS: Internal Medicine; Personal Emergency Response Attendant; ADMIT Internal Medicine
DX: J44.1 Chronic obstructive pulmonary disease with (acute) exacerbation (principal); R65.10 Systemic inflammatory response syndrome (SIRS) of non-infectious origin without acute organ dysfunction; I50.32 Chronic diastolic (congestive) heart failure; E11.65 Type 2 diabetes mellitus with hyperglycemia; I11.0 Hypertensive heart disease with heart failure; F20.9 Schizophrenia, unspecified; K21.9 Gastro-esophageal reflux disease without esophagitis; F17.210 Nicotine dependence, cigarettes, uncomplicated; K83.9 Disease of biliary tract, unspecified; E87.6 Hypokalemia; Z79.2 Long term (current) use of antibiotics; Z79.891 Long term (current) use of opiate analgesic; Z79.899 Other long term (current) drug therapy; Z88.1 Allergy status to other antibiotic agents; Z88.0 Allergy status to penicillin; Z88.2 Allergy status to sulfonamides; Z88.8 Allergy status to other drugs, medicaments and biological substances; Z85.118 Personal history of other malignant neoplasm of bronchus and lung; Z87.820 Personal history of traumatic brain injury

== ENCOUNTER 2019-09-01 19:48 | Emergency (ER) | payer OTHER, MEDICAID ==
[~2019-09-01] VITALS: Ht 180.3 cm; Wt 95.3 kg
[~2019-09-01 19:48] MED LIST changes: +AZITHROMYC200 MG/52 PO; +METFORMIN HCL500 M3 PO
[2019-09-01] MEDS ORDERED: SINGULAIR 10 MG10 M1 PO (20:01)
[2019-09-01] MEDS ORDERED: 24HR ALLERGY REL5 MG PO (20:01)
[2019-09-01 20:45] VITALS: BP 131/83
== END 2019-09-01 20:45 | disposition home or self-care (01) ==
LOC: M.ERS 19:48
DX: J02.9 Acute pharyngitis, unspecified (principal); I11.0 Hypertensive heart disease with heart failure; I50.9 Heart failure, unspecified; K21.9 Gastro-esophageal reflux disease without esophagitis; J44.9 Chronic obstructive pulmonary disease, unspecified; F20.9 Schizophrenia, unspecified; F17.210 Nicotine dependence, cigarettes, uncomplicated; Z88.0 Allergy status to penicillin; Z88.1 Allergy status to other antibiotic agents; Z88.6 Allergy status to analgesic agent; Z88.8 Allergy status to other drugs, medicaments and biological substances

== ENCOUNTER 2019-09-10 09:04 | Emergency (ER) | payer OTHER, MEDICAID ==
[~2019-09-10] VITALS: Ht 180.3 cm; Wt 91.2 kg
[~2019-09-10 09:04] MED LIST changes: +24HR ALLERGY REL5 MG PO; +SINGULAIR 10 MG10 M1 PO
[2019-09-10] MEDS ORDERED: HYDROCODON-ACE1 EAC7 PO (10:19)
[2019-09-10] MEDS ORDERED: PERIDEX 0.12%473 M1 SWISH&SPIT (10:19)
[2019-09-10] MEDS ORDERED: KEFLEX500 M1 PO (10:19)
[2019-09-10 10:40] VITALS: BP 185/90
== END 2019-09-10 10:51 | disposition home or self-care (01) ==
LOC: M.ERS 09:04
DX: K02.9 Dental caries, unspecified (principal); F17.210 Nicotine dependence, cigarettes, uncomplicated; F20.9 Schizophrenia, unspecified; I11.0 Hypertensive heart disease with heart failure; J44.9 Chronic obstructive pulmonary disease, unspecified; Z79.899 Other long term (current) drug therapy; Z88.1 Allergy status to other antibiotic agents; Z88.2 Allergy status to sulfonamides; Z88.6 Allergy status to analgesic agent; Z88.8 Allergy status to other drugs, medicaments and biological substances

== ENCOUNTER 2019-10-09 17:17 | Emergency (ER) | payer OTHER, MEDICAID ==
[~2019-10-09] VITALS: Ht 180.3 cm; Wt 104.3 kg
[~2019-10-09 17:17] MED LIST changes: +HYDROCODON-ACE1 EAC7 PO; +PERIDEX 0.12%473 M1 SWISH&SPIT
[2019-10-09] MEDS ORDERED: CILOXAN3.5 GM OPHTHALMIC (17:54)
[2019-10-09 18:05] VITALS: BP 150/77
== END 2019-10-09 18:05 | disposition home or self-care (01) ==
LOC: M.ERS 17:17
DX: H10.9 Unspecified conjunctivitis (principal); I11.0 Hypertensive heart disease with heart failure; I50.9 Heart failure, unspecified; J44.9 Chronic obstructive pulmonary disease, unspecified; K21.9 Gastro-esophageal reflux disease without esophagitis; F17.210 Nicotine dependence, cigarettes, uncomplicated; Z88.1 Allergy status to other antibiotic agents; Z88.0 Allergy status to penicillin; Z88.6 Allergy status to analgesic agent; Z88.8 Allergy status to other drugs, medicaments and biological substances

== ENCOUNTER → 2019-10-23 | Day surgery (SDC) | payer OTHER, MEDICAID ==
[~2019-10-23] MED LIST changes: +CILOXAN3.5 GM OPHTHALMIC; +LIPITOR 20 MG T20 M1 PO; +NORCO 5-325 TA1 EAC2 PO
[2019-10-23 06:58] LABS: HEMATOCRIT 50.4 % (42.0-52.0); HEMOGLOBIN 17.6 gm/dL (14.0-18.0); MCH 30.4 pg (26.0-34.0); MCHC 34.9 g/dL (28.0-37.0); MCV 87.2 fL (80.0-100.0); MPV 7.6 fl. (7.2-11.1); RBC 5.78 mil/uL (4.50-6.00); RDW-CV 13.7 % (10.5-14.5); WBC 14.3 thou/uL (4.0-11.0)
[2019-10-23 07:18] LABS: CALCIUM 8.8 mg/dL (8.5-10.1); CREATININE 1.1 mg/dL (0.6-1.3); TOTAL BILIRUBIN 0.9 mg/dL (<0.1-1.0); TOTAL PROTEIN 8.3 g/dL (6.4-8.2)
[2019-10-23 07:19] LABS: POTASSIUM 2.5 mmol/L (3.5-5.1)
== END | disposition home or self-care (01) ==
LOC: M.SUR 06:06
PROVIDERS: ATTEND Surgery
DX: R10.9 Unspecified abdominal pain (principal); Z53.8 Procedure and treatment not carried out for other reasons; Z20.828 Contact with and (suspected) exposure to other viral communicable diseases

== ENCOUNTER 2019-11-10 17:23 | Emergency (ER) | payer OTHER, MEDICAID ==
[~2019-11-10] VITALS: Ht 177.8 cm; Wt 99.3 kg
[~2019-11-10 17:23] MED LIST changes: -NORCO 5-325 TA1 EAC2 PO
[2019-11-10] MEDS ORDERED: KEFLEX500 M1 PO (18:03)
[2019-11-10] MEDS ORDERED: NORCO 5-325 TA1 EAC2 PO (18:03)
[2019-11-10 18:20] VITALS: BP 168/94
== END 2019-11-10 18:21 | disposition home or self-care (01) ==
LOC: M.ERS 17:23
DX: K02.9 Dental caries, unspecified (principal); J44.9 Chronic obstructive pulmonary disease, unspecified; K21.9 Gastro-esophageal reflux disease without esophagitis; I11.0 Hypertensive heart disease with heart failure; I50.9 Heart failure, unspecified; F17.210 Nicotine dependence, cigarettes, uncomplicated; Z88.1 Allergy status to other antibiotic agents; Z88.0 Allergy status to penicillin; Z88.6 Allergy status to analgesic agent; Z88.8 Allergy status to other drugs, medicaments and biological substances

== ENCOUNTER 2019-12-06 19:48 | Emergency (ER) | payer OTHER, MEDICAID ==
[~2019-12-06] VITALS: Ht 175.3 cm; Wt 98.9 kg
[~2019-12-06 19:48] MED LIST changes: +NORCO 5-325 TA1 EAC2 PO
[2019-12-06 20:38] LABS: HEMATOCRIT 45.2 % (42.0-52.0); HEMOGLOBIN 16.3 gm/dL (14.0-18.0); MCH 31.8 pg (26.0-34.0); MCHC 36.1 g/dL (28.0-37.0); MCV 88.1 fL (80.0-100.0); MPV 6.8 fl. (7.2-11.1); NUCLEATED RBCS 0 /100WBC; PLATELET COUNT* 317 thou/uL (150-400); RBC 5.13 mil/uL (4.50-6.00); RDW-CV 13.5 % (10.5-14.5)
[2019-12-06 20:46] LABS: CALCIUM 8.1 mg/dL (8.5-10.1); CREATININE 1.1 mg/dL (0.6-1.3)
[2019-12-06 20:52] LABS: POTASSIUM 2.9 mmol/L (3.5-5.1)
[2019-12-06 21:21] LABS: ABSOLUTE LYMPHOCYTES 4.4 thou/uL (0.8-5.3); ABSOLUTE MONOCYTES 0.2 thou/uL (0.0-1.2); ABSOLUTE NEUTROPHILS 7.3 thou/uL (1.6-8.1)
[2019-12-06 21:22] LABS: PLATELET ESTIMATE ADEQUATE
[2019-12-06 21:23] LABS: LARGE PLATELETS RARE
[2019-12-06] MEDS ORDERED: HYDROCODON-ACE1 EAC8 PO (21:42)
[2019-12-06] MEDS ORDERED: KEFLEX500 M1 PO (21:42)
[2019-12-06 21:53] VITALS: BP 131/70
== END 2019-12-06 21:55 | disposition home or self-care (01) ==
LOC: M.ERS 19:48
PROVIDERS: Emergency Medicine
DX: M54.5 Low back pain (principal); E87.6 Hypokalemia; J44.9 Chronic obstructive pulmonary disease, unspecified; I11.0 Hypertensive heart disease with heart failure; I50.9 Heart failure, unspecified; K21.9 Gastro-esophageal reflux disease without esophagitis; F17.210 Nicotine dependence, cigarettes, uncomplicated; Z88.1 Allergy status to other antibiotic agents; Z88.0 Allergy status to penicillin; Z88.2 Allergy status to sulfonamides; Z88.6 Allergy status to analgesic agent; Z88.8 Allergy status to other drugs, medicaments and biological substances

== ENCOUNTER 2019-12-19 03:32 | Emergency (ER) | payer OTHER, MEDICAID ==
[~2019-12-19] VITALS: Ht 180.3 cm; Wt 98.9 kg
[2019-12-19] MEDS ORDERED: COZAAR 25 MG TA25 M1 PO (03:49)
[2019-12-19 04:15] LABS: ABSOLUTE BASOPHILS 0.1 thou/uL (0.0-0.2); ABSOLUTE EOSINOPHILS 0.2 thou/uL (0.0-0.7); ABSOLUTE LYMPHOCYTES 4.7 thou/uL (0.8-5.3); ABSOLUTE MONOCYTES 0.6 thou/uL (0.0-1.2); ABSOLUTE NEUTROPHILS 4.6 thou/uL (1.6-8.1); BASOPHILS 1.1 %; EOSINOPHILS 1.9 %; HEMATOCRIT 43.2 % (42.0-52.0); HEMOGLOBIN 15.5 gm/dL (14.0-18.0); LYMPHOCYTES 46.3 %; MCH 31.7 pg (26.0-34.0); MCV 88.3 fL (80.0-100.0); MONOCYTES 5.5 %; MPV 7.1 fl. (7.2-11.1); NUCLEATED RBCS 0 /100WBC; PLATELET COUNT* 266 thou/uL (150-400); POLYS 45.2 %; RDW-CV 14.2 % (10.5-14.5); WBC 10.1 thou/uL (4.0-11.0)
[2019-12-19 04:32] LABS: CALCIUM 7.6 mg/dL (8.5-10.1); CREATININE 0.9 mg/dL (0.6-1.3)
[2019-12-19 04:36] LABS: ALBUMIN 3.5 g/dL (3.4-5.0); POTASSIUM 2.7 mmol/L (3.5-5.1); TOTAL BILIRUBIN 0.3 mg/dL (<0.1-1.0); TOTAL PROTEIN 7.5 g/dL (6.4-8.2)
[2019-12-19 04:44] LABS: INR 0.9; PROTIME 9.6 Seconds (9.20-11.50)
[2019-12-19 05:01] LABS: URINE BILIRUBIN NEGATIVE (Negative); URINE BLOOD NEGATIVE (Negative); URINE CLARITY CLEAR; URINE COLOR STRAW; URINE GLUCOSE-RANDOM NEGATIVE (Negative); URINE KETONES NEGATIVE (Negative); URINE LEUKOCYTES-REFLEX NEGATIVE (Negative); URINE NITRITE-REFLEX NEGATIVE (Negative); URINE PROTEIN NEGATIVE (Negative); URINE SPECIFIC GRAVITY 1.015 (1.005-1.030); URINE UROBILINOGEN 0.2 E.U./dl (0.2-1.0)
[2019-12-19] MEDS ORDERED: DEPAKOTE ER250 MG PO (06:08)
[2019-12-19 06:21] VITALS: BP 156/78
--- NOTE | 2019-12-19 13:25 | EKG ---
[place] [address] ELECTROCARDIOGRAM REPORT Name: KEERTHI STILES 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: HEBER : 1970 Requested By: Sandi Farris Order Number: [id number] MD: Kali Lambert Measurements Intervals [place] Rate: 60 P: 65 [place]: 171 QRS: 28 QRSD: 119 T: 66 QT: 443 QTc: 443 Interpretive Statements Sinus rhythm Probable left atrial enlargement Incomplete right bundle branch block Baseline wander in lead(s) II,III,aVF,V6 Compared to ECG 06/04/2019 05:15:14 Incomplete right bundle-branch block persists Electronically Signed On 12-19-2019 13:25:37 CDT by Kali Lambert [email or web address] <ELECTRONICALLY SIGNED> By: Kali Lambert MD, FACC 12/19/19 1325 0340 0340 Kali Lambert MD, FAC /EPI
== END 2019-12-19 06:21 | disposition home or self-care (01) ==
LOC: M.ERS 03:32
PROVIDERS: Personal Emergency Response Attendant
DX: R07.9 Chest pain, unspecified (principal); M25.512 Pain in left shoulder; E87.6 Hypokalemia; I11.0 Hypertensive heart disease with heart failure; I50.9 Heart failure, unspecified; J44.9 Chronic obstructive pulmonary disease, unspecified; F17.210 Nicotine dependence, cigarettes, uncomplicated; Z79.899 Other long term (current) drug therapy; Z88.1 Allergy status to other antibiotic agents; Z88.8 Allergy status to other drugs, medicaments and biological substances; Z88.0 Allergy status to penicillin; Z88.6 Allergy status to analgesic agent

== ENCOUNTER → 2020-01-11 | Outpatient (CLI) | payer OTHER, MEDICAID ==
[~2020-01-11] MED LIST changes: +COZAAR 25 MG TA25 M1 PO; +DEPAKOTE ER250 MG PO
== END ==
LOC: M.CT 07:51
PROVIDERS: ATTEND Family Medicine
DX: R91.1 Solitary pulmonary nodule (principal); E27.8 Other specified disorders of adrenal gland

== ENCOUNTER 2020-01-21 01:04 | Emergency (ER) | payer OTHER, MEDICAID ==
[~2020-01-21] VITALS: Ht 180.3 cm; Wt 100.7 kg
[2020-01-21] MEDS ORDERED: RISPERDAL 1 MG T1 MG PO (01:13)
[2020-01-21 01:42] LABS: BE 3.9 mmol/L (-2 to +3); PO2 68.4 mmHg (75.0-100.0); pH 7.374 (7.340-7.450)
[2020-01-21 01:51] LABS: PCO2 53.8 mmHg (35.0-45.0)
[2020-01-21 01:59] LABS: ABSOLUTE BASOPHILS 0.1 thou/uL (0.0-0.2); ABSOLUTE EOSINOPHILS 0.2 thou/uL (0.0-0.7); ABSOLUTE LYMPHOCYTES 4.5 thou/uL (0.8-5.3); ABSOLUTE MONOCYTES 0.7 thou/uL (0.0-1.2); ABSOLUTE NEUTROPHILS 4.9 thou/uL (1.6-8.1); EOSINOPHILS 2.1 %; HEMATOCRIT 45.5 % (42.0-52.0); HEMOGLOBIN 15.7 gm/dL (14.0-18.0); LYMPHOCYTES 43.3 %; MCH 30.5 pg (26.0-34.0); MCHC 34.5 g/dL (28.0-37.0); MCV 88.3 fL (80.0-100.0); MONOCYTES 6.5 %; MPV 7.3 fl. (7.2-11.1); NUCLEATED RBCS 0 /100WBC; PLATELET COUNT* 228 thou/uL (150-400); POLYS 47.1 %; RBC 5.16 mil/uL (4.50-6.00); RDW-CV 13.4 % (10.5-14.5); WBC 10.4 thou/uL (4.0-11.0)
[2020-01-21 02:00] LABS: CALCIUM 9.1 mg/dL (8.5-10.1); CREATININE 0.9 mg/dL (0.6-1.3); POTASSIUM 3.2 mmol/L (3.5-5.1)
[2020-01-21 02:05] LABS: ALBUMIN 3.7 g/dL (3.4-5.0); TOTAL BILIRUBIN 0.3 mg/dL (<0.1-1.0); TOTAL PROTEIN 7.8 g/dL (6.4-8.2)
[2020-01-21] MEDS ORDERED: HYDROCODON-ACE1 EAC7 PO (03:12)
[2020-01-21] MEDS ORDERED: CYCLOBENZAPRINE5 MG PO (03:12)
[2020-01-21 03:23] VITALS: BP 144/81
--- NOTE | 2020-01-21 09:56 | EKG ---
[place] [address] ELECTROCARDIOGRAM REPORT Name: KEERTHI STILES Room: [facility]#: [id number] Admission: 01/21/20 Attend Phys: Discharge: 01/21/20 Date of : 72 Date of Service: 01/21/20 0120 Report #: [id number] THIS REPORT FOR: //name// [facility] ED Test Date: 2020-01-21 Test Time: 01:20:31 Pat Name: KEERTHI STILES Department: Room: Gender: Promotion Specialist: HEBER : 1970 Requested By: Sandi Farris Order Number: [id number] MD: Ilan Randall Measurements Intervals [place] Rate: 71 P: 70 [place]: 170 QRS: 17 QRSD: 119 T: 63 QT: 423 QTc: 460 Interpretive Statements Sinus rhythm Incomplete right bundle branch block Minimal ST elevation, anterior leads Compared to ECG 12/19/2019 03:40:22 no change Electronically Signed On 01-21-2020 9:56:26 CDT by Ilan Randall [email or web address] <ELECTRONICALLY SIGNED> By: Ilan Randall MD, [facility] 01/21/20 0956 0120 0120 Ilan Randall MD, [facility] /EPI
== END 2020-01-21 03:23 | disposition home or self-care (01) ==
LOC: M.ERS 01:04
PROVIDERS: Personal Emergency Response Attendant
DX: J44.9 Chronic obstructive pulmonary disease, unspecified (principal); M79.601 Pain in right arm; Z20.828 Contact with and (suspected) exposure to other viral communicable diseases; I11.0 Hypertensive heart disease with heart failure; I50.9 Heart failure, unspecified; K21.9 Gastro-esophageal reflux disease without esophagitis; Z88.1 Allergy status to other antibiotic agents; Z88.0 Allergy status to penicillin; Z88.2 Allergy status to sulfonamides; Z88.6 Allergy status to analgesic agent; F17.210 Nicotine dependence, cigarettes, uncomplicated

== ENCOUNTER 2020-03-28 12:02 | Emergency (ER) | payer OTHER, MEDICAID ==
[~2020-03-28] VITALS: Ht 180.3 cm; Wt 98.9 kg
[~2020-03-28 12:02] MED LIST changes: +RISPERDAL 1 MG T1 MG PO
[2020-03-28 12:51] LABS: INFLUENZA A ANTIGEN Negative (Negative); INFLUENZA B ANTIGEN Negative (Negative)
[2020-03-28] MEDS ORDERED: KEFLEX500 M1 PO (13:02)
[2020-03-28 13:13] VITALS: BP 145/78
== END 2020-03-28 13:13 | disposition home or self-care (01) ==
LOC: M.ERS 12:02
PROVIDERS: Nurse Practitioner Family
DX: J01.00 Acute maxillary sinusitis, unspecified (principal); Z20.828 Contact with and (suspected) exposure to other viral communicable diseases; I11.0 Hypertensive heart disease with heart failure; I50.9 Heart failure, unspecified; J44.9 Chronic obstructive pulmonary disease, unspecified; K21.9 Gastro-esophageal reflux disease without esophagitis; F17.210 Nicotine dependence, cigarettes, uncomplicated; Z88.1 Allergy status to other antibiotic agents; Z88.0 Allergy status to penicillin; Z88.2 Allergy status to sulfonamides; Z88.8 Allergy status to other drugs, medicaments and biological substances; Z79.899 Other long term (current) drug therapy

== ENCOUNTER 2020-03-29 22:44 | Emergency (ER) | payer OTHER, MEDICAID ==
[~2020-03-29] VITALS: Ht 180.3 cm; Wt 98.9 kg
[2020-03-29 23:06] VITALS: BP 177/87
== END 2020-03-29 23:29 | disposition home or self-care (01) ==
LOC: M.ERS 22:44
DX: J32.9 Chronic sinusitis, unspecified (principal); K21.9 Gastro-esophageal reflux disease without esophagitis; I11.0 Hypertensive heart disease with heart failure; I50.9 Heart failure, unspecified; J44.9 Chronic obstructive pulmonary disease, unspecified; F17.210 Nicotine dependence, cigarettes, uncomplicated; Z88.1 Allergy status to other antibiotic agents; Z88.6 Allergy status to analgesic agent; Z88.0 Allergy status to penicillin; Z88.2 Allergy status to sulfonamides; Z88.8 Allergy status to other drugs, medicaments and biological substances

== ENCOUNTER 2020-05-01 21:38 | Emergency (ER) | payer OTHER, MEDICAID ==
[~2020-05-01] VITALS: Ht 180.3 cm; Wt 98.4 kg
[2020-05-01] MEDS ORDERED: NAPROSYN500 MG PO (22:16)
[2020-05-01] MEDS ORDERED: MAPAP325 MG PO (22:16)
[2020-05-01] MEDS ORDERED: AFRIN15 M1 NASAL (22:16)
[2020-05-01] MEDS ORDERED: DOXYCYCLINE 10100 MG PO (22:16)
[2020-05-01 22:30] VITALS: BP 170/86
== END 2020-05-01 22:30 | disposition home or self-care (01) ==
LOC: M.ERS 21:38
DX: J01.00 Acute maxillary sinusitis, unspecified (principal); M25.511 Pain in right shoulder; K21.9 Gastro-esophageal reflux disease without esophagitis; I11.0 Hypertensive heart disease with heart failure; I50.9 Heart failure, unspecified; J44.9 Chronic obstructive pulmonary disease, unspecified; F17.210 Nicotine dependence, cigarettes, uncomplicated; Z88.1 Allergy status to other antibiotic agents; Z88.6 Allergy status to analgesic agent; Z88.0 Allergy status to penicillin; Z88.8 Allergy status to other drugs, medicaments and biological substances; Z79.899 Other long term (current) drug therapy

== ENCOUNTER → 2020-06-06 | Emergency (ER) | payer OTHER, MEDICAID ==
[~2020-06-06] VITALS: Ht 180.3 cm; Wt 97.5 kg
[~2020-06-06] MED LIST changes: +AFRIN15 M1 NASAL; +CENTANY30 GM TOP; +MAPAP325 MG PO; +NAPROSYN500 MG PO
[2020-06-06 15:01] VITALS: BP 138/81
== END ==
LOC: M.ERS 14:32
DX: L98.8 Other specified disorders of the skin and subcutaneous tissue (principal); L08.9 Local infection of the skin and subcutaneous tissue, unspecified; I11.0 Hypertensive heart disease with heart failure; I50.9 Heart failure, unspecified; J44.9 Chronic obstructive pulmonary disease, unspecified; K21.9 Gastro-esophageal reflux disease without esophagitis; F17.210 Nicotine dependence, cigarettes, uncomplicated; Z88.1 Allergy status to other antibiotic agents; Z88.0 Allergy status to penicillin; Z88.2 Allergy status to sulfonamides; Z88.6 Allergy status to analgesic agent; Z88.8 Allergy status to other drugs, medicaments and biological substances

== ENCOUNTER 2020-09-30 18:26 | Emergency (ER) | payer OTHER, MEDICAID ==
[~2020-09-30] VITALS: Ht 180.3 cm; Wt 102.1 kg
[2020-09-30] MEDS ORDERED: HYDROCODON-ACE1 EAC7 PO (18:48)
[2020-09-30] MEDS ORDERED: DIFLUCAN100 MG PO (19:37)
[2020-09-30 19:51] VITALS: BP 142/65
== END 2020-09-30 19:52 | disposition home or self-care (01) ==
LOC: M.ERS 18:26
DX: J01.10 Acute frontal sinusitis, unspecified (principal); I11.0 Hypertensive heart disease with heart failure; I50.9 Heart failure, unspecified; K21.9 Gastro-esophageal reflux disease without esophagitis; J44.9 Chronic obstructive pulmonary disease, unspecified; Z88.1 Allergy status to other antibiotic agents; Z88.0 Allergy status to penicillin; Z88.2 Allergy status to sulfonamides; Z88.8 Allergy status to other drugs, medicaments and biological substances; Z88.6 Allergy status to analgesic agent

== ENCOUNTER 2020-10-18 21:36 | Emergency (ER) | payer OTHER, MEDICAID ==
[~2020-10-18] VITALS: Ht 180.3 cm; Wt 106.6 kg
[~2020-10-18 21:36] MED LIST changes: +DIFLUCAN100 MG PO
[2020-10-18] MEDS ORDERED: HYDROCODON-ACE1 EAC8 PO (22:40)
[2020-10-18 22:46] VITALS: BP 145/64
== END 2020-10-18 22:46 | disposition home or self-care (01) ==
LOC: M.ERS 21:36
DX: J32.0 Chronic maxillary sinusitis (principal); Z20.822 Contact with and (suspected) exposure to COVID-19; I11.0 Hypertensive heart disease with heart failure; I50.9 Heart failure, unspecified; K21.9 Gastro-esophageal reflux disease without esophagitis; J44.9 Chronic obstructive pulmonary disease, unspecified; F17.210 Nicotine dependence, cigarettes, uncomplicated; Z88.0 Allergy status to penicillin; Z88.1 Allergy status to other antibiotic agents; Z88.8 Allergy status to other drugs, medicaments and biological substances; Z88.6 Allergy status to analgesic agent

== ENCOUNTER 2020-12-10 22:42 | Emergency (ER) | payer OTHER, MEDICAID ==
[~2020-12-10] VITALS: Ht 177.8 cm; Wt 81.7 kg
[2020-12-10] MEDS ORDERED: PERCOCET 7.5-31 EAC1 PO (23:36)
[2020-12-10 23:45] VITALS: BP 170/80
== END 2020-12-10 23:46 | disposition home or self-care (01) ==
LOC: M.ERS 22:42
DX: K04.7 Periapical abscess without sinus (principal); K21.9 Gastro-esophageal reflux disease without esophagitis; I50.9 Heart failure, unspecified; I11.0 Hypertensive heart disease with heart failure; J44.9 Chronic obstructive pulmonary disease, unspecified; F17.210 Nicotine dependence, cigarettes, uncomplicated; Z88.1 Allergy status to other antibiotic agents; Z88.0 Allergy status to penicillin; Z88.6 Allergy status to analgesic agent

== ENCOUNTER 2020-12-18 12:26 | Emergency (ER) | payer OTHER, MEDICAID ==
[~2020-12-18] VITALS: Ht 180.3 cm; Wt 104.3 kg
[~2020-12-18 12:26] MED LIST changes: +PERCOCET 7.5-31 EAC1 PO
[2020-12-18 13:31] VITALS: BP 141/89
== END 2020-12-18 13:31 | disposition home or self-care (01) ==
LOC: M.ERS 12:26
DX: M54.9 Dorsalgia, unspecified (principal); F20.9 Schizophrenia, unspecified; K21.9 Gastro-esophageal reflux disease without esophagitis; I50.9 Heart failure, unspecified; I11.0 Hypertensive heart disease with heart failure; J44.9 Chronic obstructive pulmonary disease, unspecified; F17.210 Nicotine dependence, cigarettes, uncomplicated; Z79.899 Other long term (current) drug therapy; Z88.0 Allergy status to penicillin; Z88.2 Allergy status to sulfonamides; Z88.6 Allergy status to analgesic agent; Z88.8 Allergy status to other drugs, medicaments and biological substances; V43.52XA Car driver injured in collision with other type car in traffic accident, initial encounter; Y93.89 Activity, other specified; Y92.89 Other specified places as the place of occurrence of the external cause; Y99.8 Other external cause status

== ENCOUNTER 2021-01-15 21:02 | Emergency (ER) | payer OTHER, MEDICAID | END 2021-01-15 23:08 | disposition left against medical advice (07) | LOC: M.ERS 21:02 | DX: R10.9 Unspecified abdominal pain (principal); Z53.21 Procedure and treatment not carried out due to patient leaving prior to being seen by health care provider ==